=== PATIENT | male | born 2000 | race African-American/Black ===

== ENCOUNTER 2021-07-08 11:13 | Inpatient (IN) | payer OTHER ==
[~2021-07-08] VITALS: Ht 182.9 cm; Wt 60.2 kg
[2021-07-08 12:52] LABS: HEMOGLOBIN 14.9 g/dl (13.5-17.5); MEAN CORPUSCULAR HGB CONC 32.4 g/dl (32.0-36.5); MEAN CORPUSCULAR VOLUME 89.7 fl (80.0-96.0); PLATELET COUNT, AUTOMATED 182 10^3/uL (150-450); RED BLOOD COUNT 5.13 10^6/uL (4.30-6.10); WHITE BLOOD COUNT 8.1 10^3/uL (4.0-10.0)
[2021-07-08 13:15] LABS: AMPHETAMINES LEVEL URINE NEGATIVE (NEGATIVE); BARBITURATES URINE NEGATIVE (NEGATIVE); BENZODIAZEPINES URINE NEGATIVE (NEGATIVE); CANNABINOIDS URINE NEGATIVE (NEGATIVE); COCAINE METABOLITE URINE NEGATIVE (NEGATIVE); METHADONE URINE NEGATIVE (NEGATIVE); OPIATES URINE NEGATIVE (NEGATIVE); PHENCYCLIDINE URINE NEGATIVE (NEGATIVE)
[2021-07-08 13:26] LABS: ACETAMINOPHEN LEVEL < 2.0 UG/ML (10.0-30.0); ALBUMIN 4.5 GM/DL (3.2-5.2); ALT/SGPT 30 U/L (12-78); BILIRUBIN,DIRECT 0.2 MG/DL (0.0-0.2); BILIRUBIN,TOTAL 0.6 MG/DL (0.2-1.0); BLOOD UREA NITROGEN 21 MG/DL (7-18); CALCIUM LEVEL 9.7 MG/DL (8.5-10.1); CARBON DIOXIDE LEVEL 28 MEQ/L (21-32); CHLORIDE LEVEL 106 MEQ/L (98-107); CREATININE FOR GFR 1.16 MG/DL (0.70-1.30); ETHYL ALCOHOL (ETHANOL) 0.005 % (0.000-0.010); GLOMERULAR FILTRATION RATE > 60.0 (>60); GLUCOSE, FASTING 84 MG/DL (70-100); POTASSIUM SERUM 4.7 MEQ/L (3.5-5.1); SALICYLATE LEVEL < 1.7 MG/DL (5.0-30.0); SODIUM LEVEL 140 MEQ/L (136-145); THYROID STIMULATING HORMONE 0.643 uIU/ML (0.358-3.740); TOTAL PROTEIN 7.7 GM/DL (6.4-8.2)
[2021-07-08 16:34] LABS: RSV AMPLIFICATION NEGATIVE (NEGATIVE)
[2021-07-08] MEDS ORDERED: HOME MED LIST COMPLETE! XX SCH (16:55)
[2021-07-08] MEDS ORDERED: MAALOX 30 ML SUSP *UDC PO PRN (17:35)
[2021-07-08] MEDS ORDERED: ACETAMINOPHEN TAB 650MG DOSE (2X325MG) PO PRN (17:35)
[2021-07-08] MEDS ORDERED: MOM 30ML SUSPENSION UDC PO PRN (17:35)
[2021-07-08] MEDS ORDERED: traZODone 50 MG TAB PO PRN (17:35)
[2021-07-08] MEDS ORDERED: NICOTINE 21MG/24HR 1 EA TRANSDERMAL TD PRN (17:35)
[2021-07-08 17:55] VITALS: BP 134/62
[2021-07-09 06:32] VITALS: BP 128/68
[2021-07-09] MEDS ORDERED: SERTRALINE HCL 50 MG TAB PO ONE ×2 (09:00)
[2021-07-09 18:23] VITALS: BP 135/74
[2021-07-10 06:45] VITALS: BP 123/77
[2021-07-10 16:04] VITALS: BP 121/71
[2021-07-11 06:34] VITALS: BP 134/88
[2021-07-11 16:09] VITALS: BP 140/74
[2021-07-12 06:31] VITALS: BP 143/84
[2021-07-12] MEDS ORDERED: hydrOXYzine 50 MG TAB PO PRN (08:30)
[2021-07-12 16:28] VITALS: BP 137/84
[2021-07-13 06:35] VITALS: BP 123/66
[2021-07-13] MEDS ORDERED: NICO21PAT TD (11:19)
== END 2021-07-13 13:25 | disposition home or self-care (01) | DRG 882 ==
LOC: M ED 11:13 → M PSY 18:18
PROVIDERS: ADMIT Psychiatry & Neurology Psychiatry; ATTEND Psychiatry & Neurology Psychiatry
DX: F43.20 Adjustment disorder, unspecified (principal); F32.1 Major depressive disorder, single episode, moderate; Z56.6 Other physical and mental strain related to work; Z20.822 Contact with and (suspected) exposure to COVID-19

== ENCOUNTER 2021-09-14 18:44 | Emergency (ER) | payer OTHER ==
[~2021-09-14] VITALS: Ht 195.6 cm; Wt 79.1 kg
[~2021-09-14 18:44] MED LIST: NICO21PAT TD
[2021-09-14 20:47] LABS: HEMATOCRIT 43.5 % (42.0-52.0); HEMOGLOBIN 14.1 g/dl (13.5-17.5); MEAN CORPUSCULAR HEMOGLOBIN 28.7 pg (27.0-33.0); MEAN CORPUSCULAR HGB CONC 32.4 g/dl (32.0-36.5); MEAN CORPUSCULAR VOLUME 88.4 fl (80.0-96.0); PLATELET COUNT, AUTOMATED 211 10^3/uL (150-450); RED BLOOD COUNT 4.92 10^6/uL (4.30-6.10)
[2021-09-14 21:31] LABS: ACETAMINOPHEN LEVEL < 2.0 UG/ML (10.0-30.0); ALBUMIN 4.3 GM/DL (3.2-5.2); ALT/SGPT 23 U/L (12-78); BILIRUBIN,DIRECT 0.1 MG/DL (0.0-0.2); BILIRUBIN,TOTAL 0.4 MG/DL (0.2-1.0); BLOOD UREA NITROGEN 20 MG/DL (7-18); CALCIUM LEVEL 9.2 MG/DL (8.5-10.1); CARBON DIOXIDE LEVEL 29 MEQ/L (21-32); CHLORIDE LEVEL 104 MEQ/L (98-107); CREATININE FOR GFR 1.24 MG/DL (0.70-1.30); ETHYL ALCOHOL (ETHANOL) < 0.003 % (0.000-0.010); GLOMERULAR FILTRATION RATE > 60.0 (>60); GLUCOSE, FASTING 110 MG/DL (70-100); POTASSIUM SERUM 3.7 MEQ/L (3.5-5.1); SALICYLATE LEVEL < 1.7 MG/DL (5.0-30.0); SODIUM LEVEL 139 MEQ/L (136-145); THYROID STIMULATING HORMONE 0.573 uIU/ML (0.358-3.740); TOTAL PROTEIN 7.9 GM/DL (6.4-8.2)
[2021-09-14 21:33] LABS: RSV AMPLIFICATION NEGATIVE (NEGATIVE)
[2021-09-15 01:31] LABS: AMPHETAMINES LEVEL URINE NEGATIVE (NEGATIVE); BARBITURATES URINE NEGATIVE (NEGATIVE); BENZODIAZEPINES URINE NEGATIVE (NEGATIVE); CANNABINOIDS URINE NEGATIVE (NEGATIVE); COCAINE METABOLITE URINE NEGATIVE (NEGATIVE); METHADONE URINE NEGATIVE (NEGATIVE); OPIATES URINE NEGATIVE (NEGATIVE); PHENCYCLIDINE URINE NEGATIVE (NEGATIVE)
[2021-09-16 11:04] VITALS: BP 160/85
== END 2021-09-16 11:08 ==
LOC: M ED 18:44
DX: R45.851 Suicidal ideations (principal)